=== PATIENT | male | born 1960 | race Caucasian/White ===

== ENCOUNTER 2020-10-01 03:35 | Emergency (ER) | payer MEDICAID, MEDICARE ==
[~2020-10-01] VITALS: Ht 177.8 cm; Wt 79.5 kg
[~2020-10-01 03:35] MED LIST: HYDR1TAB PO; LITH300C43 PO
[2020-10-01 04:12] VITALS: BP 142/124
[2020-10-01] MEDS ORDERED: ondansetron 4mg rapidly disintigrating tab PO ONE (04:20)
--- NOTE | 2020-10-01 05:08 | NUR ---
DR. AGUIRRE UPDATED THE PT REQUESTING A WORK NOTE FOR TONIGHT. NOTE PROVIDED. 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 NAUSEA IS MINIMAL.
== END 2020-10-01 05:08 | disposition home or self-care (01) ==
LOC: ER 03:36
DX: F41.9 Anxiety disorder, unspecified (principal); R63.0 Anorexia; F12.90 Cannabis use, unspecified, uncomplicated; Z86.14 Personal history of Methicillin resistant Staphylococcus aureus infection; Z79.899 Other long term (current) drug therapy
CPT/HCPCS: 99283

== ENCOUNTER 2024-10-16 12:59 | Outpatient (CLI) | payer MEDICARE ==
--- NOTE | 2024-10-16 14:24 | RADIOLOGY REPORT ---
Procedure: CT CT CHEST LOW DOSE Reason for study/Clinical History: NICOTINE DEPENDENCE Comparison Study: None available at time of dictation. TECHNIQUE: Multidetector CT of the chest was performed from the lung apices to the upper abdomen with out the use of intravenous contract. Axial, coronal and sagittal multiplanar reformats were performed . Radiation Dose Information: CT Dose: CTDI volume is 2.8 mGy. Dose-length product is 110 mGy*cm The dose indicators for CT are the volume Computed Tomography (CT) Dose Index (CTDIvol) and the Dose Length Product (DLP), and are measured in units of mGy and mGy-cm, respectively. These indicators are not patient dose, but values generated from the CT scanner acquisition factors. The report includes radiation exposure data for exposures received during this examination. FINDINGS: Lower neck: Normal thyroid. Lungs: No focal consolidation. Mild to moderate centrilobular emphysema. 0.5 cm nodule in the right lower lobe, image 72 0.3 cm nodule in the left lower lobe, image 91 Heart/Vascular Structures: Normal heart size. No pericardial effusion. Lymph Nodes: No adenopathy Pleura: No pleural effusion or significant pneumothorax. Musculoskeletal: No acute osseous abnormality. Soft tissues: Normal. Upper abdomen: Limited portions of the upper abdomen are unremarkable. IMPRESSION: 0.5 cm nodule in the right lower lobe, image 72 0.3 cm nodule in the left lower lobe, image 91 LUNG RADS Category 2: Continue annual screening with LDCT
== END 2024-10-16 23:59 | disposition home or self-care (01) ==
LOC: RAD 12:59
PROVIDERS: ATTEND Student in an Organized Health Care Education/Training Program
DX: Z12.2 Encounter for screening for malignant neoplasm of respiratory organs (principal); F17.210 Nicotine dependence, cigarettes, uncomplicated; J43.2 Centrilobular emphysema; R91.8 Other nonspecific abnormal finding of lung field
CPT/HCPCS: 71271